=== PATIENT | female | born 1950 | race Two or more races ===

== ENCOUNTER 2023-04-26 07:51 | Outpatient (CLI) | payer OTHER | END 2023-04-26 07:52 | disposition home or self-care (01) | LOC: EDBD 07:51 → NUCLEAR 07:51 | PROVIDERS: ATTEND Obstetrics & Gynecology Gynecologic Oncology | DX: C54.1 Malignant neoplasm of endometrium (principal) | CPT/HCPCS: 78815; A9552 ==